=== PATIENT | male | born 1995 | race Hispanic/Latino ===

== ENCOUNTER 2017-07-20 16:33 | Emergency (ER) | payer MEDICAID ==
[2017-07-20 16:39] VITALS: BP 104/64; PULSE 71; RESP 18; TEMP 98.6; O2SAT 98
--- NOTE | 2017-07-20 17:01 | ED PDOC ---
HPI: Psych/Substance Abuse Time Seen by Provider: 07/20/17 16:45 Chief Complaint (Nursing): Substance Abuse Chief Complaint (Provider): ETOH History Per: Patient, EMS History/Exam Limitations: no limitations Onset/Duration Of Symptoms: Hrs Current Symptoms Are (Timing): Still Present Additional Complaint(s): 22 yo male brought in by EMS for evaluation of ETOH. Pt admits to drinking today. Denies drug use Past Medical History Reviewed: Historical Data, Nursing Documentation, Vital Signs Vital Signs: Last Vital Signs Temp 98.6 F 07/20/17 16:36 Pulse 71 07/20/17 16:36 Resp 18 07/20/17 16:36 BP 104/64 07/20/17 16:36 Pulse Ox 98 07/20/17 16:36 - Medical History PMH: No Chronic Diseases - Surgical History Surgical History: No Surg Hx - Family History Family History: States: No Known Family Hx - Living Arrangements Living Arrangements: With Family - Social History Current smoker - smoking cessation education provided: No - Home Medications Home Medications: Ambulatory Orders Medication Instructions Recorded Acetaminophen/Hydrocodone Bi 1 tab PO Q6H PRN #15 tab 03/18/15 [Hydrocodone Bitartrate and Acetaminophen 325 ] Ibuprofen [Motrin] 600 mg PO Q6H PRN #15 tab 03/18/15 - Allergies Allergies/Adverse Reactions: Allergies Allergy/AdvReac Type Severity Reaction Status Date / Time No Known Allergies Allergy Verified 03/18/15 13:38 Review of Systems ROS Statement: Except As Marked, All Systems Reviewed And Found Negative Constitutional: Negative for: Fever, Chills Cardiovascular: Negative for: Chest Pain, Palpitations Respiratory: Negative for: Cough, Shortness of Breath Physical Exam - Reviewed Nursing Documentation Reviewed: Yes Vital Signs Reviewed: Yes - Physical Exam Appears: Positive for: Well, Non-toxic, No Acute Distress Head Exam: Positive for: ATRAUMATIC, NORMAL INSPECTION, NORMOCEPHALIC Skin: Positive for: Normal Color, Warm, DRY Eye Exam: Positive for: Normal appearance, EOMI, PERRL ENT: Positive for: Normal ENT Inspection Neck: Positive for: Normal, Painless ROM Cardiovascular/Chest: Positive for: Regular Rate, Rhythm Respiratory: Positive for: CNT, Normal Breath Sounds Back: Positive for: Normal Inspection Extremity: Positive for: Normal ROM Neurologic/Psych: Positive for: Alert, Oriented, Gait (SLightly unsteady ) - ECG O2 Sat by Pulse Oximetry: 98 Medical Decision Making Medical Decision Makin sober friends in ER to bring patient home. Disposition - Clinical Impression Clinical Impression: Alcohol abuse - Patient ED Disposition Is Patient to be Admitted: No Counseled Patient/Family Regarding: Diagnosis, Need For Followup - Disposition Disposition: Routine/Home Disposition Time: 17:00 Condition: STABLE Instructions: Effects of Alcohol on Your Health
== END 2017-07-20 17:08 | disposition home or self-care (01) ==
LOC: H.ER 16:33
DX: F10.10 Alcohol abuse, uncomplicated (principal)

== ENCOUNTER 2017-12-17 04:34 | Emergency (ER) | payer MEDICAID ==
--- NOTE | 2017-12-17 05:13 | ED PDOC ---
Lower Extremity Pain/Injury Chief Complaint (Provider): right knee pain History Per: Patient History/Exam Limitations: no limitations Onset/Duration Of Symptoms: Hrs Current Symptoms Are (Timing): Still Present Additional Complaint(s): 22 y/o male presents for evaluation of right knee pain x 6 hours. Patient states he was rock climbing indoors and fell on to a padded mat. Patient states he walked home after that with some discomfort, woke up an hour ago and noticed worsening pain to knee with associated swelling and bruising, which prompted ED visit. Denies numbness/weakness right lower extremity, limitation of movement. No medication taken for relief thus far. <Onelia Murphy - Last Filed: 12/17/17 06:07> <Hayden Pace - Last Filed: 12/17/17 06:49> Time Seen by Provider: 12/17/17 04:57 Chief Complaint (Nursing): Lower Extremity Problem/Injury Past Medical History Reviewed: Historical Data, Nursing Documentation, Vital Signs Vital Signs: Last Vital Signs Temp 98 F 12/17/17 04:52 Pulse 44 L 12/17/17 04:52 Resp 14 12/17/17 04:52 BP 94/54 L 12/17/17 04:52 Pulse Ox 98 12/17/17 04:52 - Medical History PMH: No Chronic Diseases - Surgical History Surgical History: No Surg Hx - Family History Family History: States: No Known Family Hx - Living Arrangements Living Arrangements: Alone <Onelia Murphy - Last Filed: 12/17/17 06:07> Vital Signs: Last Vital Signs Temp 98 F 12/17/17 04:52 Pulse 44 L 12/17/17 04:52 Resp 14 12/17/17 04:52 BP 94/54 L 12/17/17 04:52 Pulse Ox 98 12/17/17 06:08 <Hayden Pace - Last Filed: 12/17/17 06:49> - Home Medications Home Medications: Ambulatory Orders Medication Instructions Recorded Acetaminophen/Hydrocodone Bi 1 tab PO Q6H PRN #15 tab 03/18/15 [Hydrocodone Bitartrate and Acetaminophen 325 ] Ibuprofen [Motrin] 600 mg PO Q6H PRN #15 tab 03/18/15 Naproxen [Naprosyn] 500 mg PO Q12 PRN #20 tablet 12/17/17 - Allergies Allergies/Adverse Reactions: Allergies Allergy/AdvReac Type Severity Reaction Status Date / Time No Known Allergies Allergy Verified 12/17/17 04:52 Review of Systems ROS Statement: Except As Marked, All Systems Reviewed And Found Negative Musculoskeletal: Positive for: Leg Pain (right knee pain) <Onelia Murphy - Last Filed: 12/17/17 06:07> Physical Exam - Reviewed Nursing Documentation Reviewed: Yes Vital Signs Reviewed: Yes - Physical Exam Appears: Positive for: Well, Non-toxic, No Acute Distress Pulses-Dorsalis Pedis (L): 2+ Pulses-Dorsalis Pedis (R): 2+ Pulses-Post. Tibialis (L): 2+ Pulses-Post. Tibialis (R): 2+ Extremity: Positive for: Capillary Refill (<2 sec b/l LE), Swelling (anterior right knee with + edema, ecchymosis, tender to touch. Limitation of movement upon flexion secondary to pain) Neurologic/Psych: Positive for: Alert, Oriented. Negative for: Motor/Sensory Deficits <Onelia Murphy C - Last Filed: 12/17/17 06:07> - ECG O2 Sat by Pulse Oximetry: 98 - Other Rad xray right knee X-Ray: Viewed By Me X-Ray Interpretation: no acute findings - Progress ED Course And Treament: xray right knee, ibuprofen PO Patient educated on findings, will order CT knee for further eval <Onelia Murphy C - Last Filed: 12/17/17 06:07> Medical Decision Making Medical Decision Makin Patient has significant swelling to R knee after direct trauma Knee shows effusion Pending CT given significant amount of swelling Will endorse to Dr. Pena <Hayden Pace - Last Filed: 12/17/17 06:49> Disposition - Disposition Disposition Time: 06:00 Patient Signed Over To: Hayden Pace Handoff Comments: pending CT <Onelia Murphy - Last Filed: 12/17/17 06:07> - Patient ED Disposition Is Patient to be Admitted: Transfer of Care - Disposition Disposition: Transfer of Care Disposition Time: 07:00 Patient Signed Over To: Drew Pena <Hayden Pace - Last Filed: 12/17/17 06:49> - Clinical Impression Clinical Impression: Right knee injury - Disposition Referrals: Bhakti Montes MD [Staff Provider] - Condition: STABLE Prescriptions: Naproxen [Naprosyn] 500 mg PO Q12 PRN #20 tablet PRN Reason: Pain, Moderate (4-7) Instructions: Knee Pain Forms: [facility] ([place])
--- NOTE | 2017-12-17 07:20 | ED PDOC ---
- ECG O2 Sat by Pulse Oximetry: 98 (RA) Pulse Ox Interpretation: Normal - CT Scan/US ct Other Rad Studies (CT/US): Read By Radiologist Other Rad Interpretation: no fx - Progress ED Course And Treament: 951: Pt. with no numbness, tingles. Limited ROM due to pain. 2+ popliteal and dorsalis pedis pulse. No calf tenderness. Pain not out of proportion. Pt. to fu with ortho. AAOx3. Crutches, no weight on leg, and knee immobilizer. Medical Decision Making Medical Decision Makin:00 --22 y/o with right knee pain transferred to my care pending CT s/p injury. 09:[address] FINDINGS: There is no acute displaced fracture or bone destruction. Bone alignment and mineralization are normal. There is no joint effusion. Evaluation of internal derangement is limited on noncontrast CT examination. The periarticular muscles are normal. There is a large prepatellar soft tissue hematoma and subcutaneous edema. IMPRESSION: No acute displaced fracture or dislocation. Large prepatellar soft tissue hematoma and subcutaneous edema. Evaluation of internal derangement is limited on noncontrast CT examination. If clinically indicated, an MRI may be performed. Scribe Attestation: Documented by Amanda Lucas, acting as a scribe for Drew Pena MD Provider Scribe Attestation: All medical record entries made by the Scribe were at my direction and personally dictated by me. I have reviewed the chart and agree that the record accurately reflects my personal performance of the history, physical exam, medical decision making, and the department course for this patient. I have also personally directed, reviewed, and agree with the discharge instructions and disposition. Disposition Counseled Patient/Family Regarding: Studies Performed, Diagnosis - Clinical Impression Clinical Impression: Right knee injury, Traumatic hematoma of knee - POA Present On Arrival: Falls Or Trauma - Disposition Referrals: Boiardo,Gianfranco A III, MD [Staff Provider] - 12/18/17 Disposition: Routine/Home Disposition Time: 09:57 Condition: STABLE Additional Instructions: Return if not better in 3 days. See the orthopedic doctor without fail in 48hrs for further evaluation and treatment. Do no put weight on the right leg; use the crutches. Prescriptions: Naproxen [Naprosyn] 500 mg PO Q12 PRN #20 tablet PRN Reason: Pain, Moderate (4-7) Instructions: Knee Pain Forms: [facility] ([place]ian), [facility] ED School/Work Excuse Procedures - Splinting Location: R Pre-Made Type: knee immobilizer Pre-Proc Neuro Vasc Exam: normal Post-Proc Neuro Vasc Exam: normal
--- NOTE | 2017-12-17 09:28 | CT ---
PROCEDURE: CT scan of the right knee without contrast INDICATION: TECHNIQUE: Multiple axial images were obtained with slice thickness of 2.5 mm. Coronal and sagittal reformatted images were obtained. Iterative reconstruction was used. Radiation dose: Total exam DLP = 309.98 mGy-cm. This CT exam was performed using one or more of the following dose reduction techniques: Automated exposure control, adjustment of the mA and/or kV according to patient size, and/or use of iterative reconstruction technique. COMPARISON: Plain radiographs performed earlier the same day. FINDINGS: There is no acute displaced fracture or bone destruction. Bone alignment and mineralization are normal. There is no joint effusion. Evaluation of internal derangement is limited on noncontrast CT examination. The periarticular muscles are normal. There is a large prepatellar soft tissue hematoma and subcutaneous edema. IMPRESSION: No acute displaced fracture or dislocation. Large prepatellar soft tissue hematoma and subcutaneous edema. Evaluation of internal derangement is limited on noncontrast CT examination. If clinically indicated, an MRI may be performed.
[2017-12-17 10:45] VITALS: BP 133/60; PULSE 55; RESP 16; TEMP 98.2; O2SAT 99
--- NOTE | 2017-12-17 10:51 | RAD ---
Date of service: 12/17/2017 PROCEDURE: Right Knee Radiographs. HISTORY: fall, pain/swelling/bruising COMPARISON: None. FINDINGS: BONES: No acute fracture or destructive bony lesion identified. JOINTS: No subluxation or dislocation. No osteoarthritis. JOINT EFFUSION: None apparent. OTHER FINDINGS: Moderate medial and prominent anterior knee soft tissue edema is appreciated with limited lateral knee soft tissue edema evident. No retained radiodense foreign body or soft tissue edema is appreciable. IMPRESSION: No acute fracture dislocation right knee. Prominent intrinsic knee soft tissue edema is appreciated predominately anteriorly as discussed above. No retained radiodense foreign body or soft tissue edema is appreciable.
== END 2017-12-17 10:37 | disposition home or self-care (01) ==
LOC: H.ER 04:34
DX: S80.01XA Contusion of right knee, initial encounter (principal); W13.8XXA Fall from, out of or through other building or structure, initial encounter; Y93.31 Activity, mountain climbing, rock climbing and wall climbing; Y92.39 Other specified sports and athletic area as the place of occurrence of the external cause